=== PATIENT | female | born 1960 | race Two or more races ===

== ENCOUNTER → 2025-07-12 | Outpatient (CLI) | payer MEDICARE, MEDICAID, SELFPAY ==
--- NOTE | 2025-07-12 08:59 | EKG_ITS ---
[facility] Test Date: 2025-07-12 Pat Name: JESUS BERNAL Department: Room: - Gender: Female Network Consultant: RENA : 1960 Requested By: Jeffery Lizarraga Order Number: [id number] Reading MD: Jeffery Lizarraga Measurements Intervals [place] Rate: 75 P: 70 VA: 145 QRS: 0 QRSD: 101 T: 42 QT: 367 QTc: 410 Interpretive Statements SINUS RHYTHM INCOMPLETE RIGHT BUNDLE BRANCH BLOCK [90+ ms QRS DURATION, TERMINAL R IN V1/V2, 40+ ms S IN I/aVL/V4/V5/V6] Compared to ECG 07/18/2022 17:27:24 Incomplete right bundle-branch block now present /[id number]
== END | disposition home or self-care (01) ==
LOC: SEKG 08:31
PROVIDERS: Referring Provider Ophthalmology; Visit Provider Ophthalmology
DX: Z01.810 Encounter for preprocedural cardiovascular examination (principal)
CPT/HCPCS: 93005